=== PATIENT | male | born 1955 | race Caucasian/White ===

== ENCOUNTER 2019-08-06 22:38 | Observation (INO) ==
[2019-08-06] MEDS ORDERED: SODIUM CHLORIDE 0.9% 1,000 ML IV STA (22:55)
[2019-08-06] MEDS ORDERED: MORPHINE 4 MG/1 ML VIAL IV ONE (22:55)
[2019-08-06] MEDS ORDERED: ONDANSETRON 4 MG/2 ML VIAL IV ONE (22:55)
[2019-08-06 23:40] LABS: Basophils % 0.1 % (0.0-0.8); Hematocrit 44.3 VOL% (42.0-52.0); Immature Granulocytes % 0.4 %; Immature Granulocytes Absolute 0.06 #; Lymphocytes # 1.7 10*3/uL (1.4-4.0); Lymphocytes % 10.1 % (21.2-54.2); Mean Corpuscular HGB Conc 33.9 GM/DL (32-36); Mean Corpuscular Volume 89.7 FL (87-102); Mean Platelet Volume 10.1 FL (9.6-12.0); Monocytes % 8.5 % (1.7-12.7); Neutrophils % 80.9 % (38.7-73.9); Platelet Count 243 T/CUMM (130-400); Red Blood Count 4.94 MC/CUMM (3.8-5.5); Red Cell Distribution Width 13.2 % (9.3-17.3); White Blood Count 16.8 T/CUMM (4-12)
[2019-08-06 23:44] LABS: Amorphous Crystals,Urine Occasional /HPF (Few); Apearance,Urine CLEAR (Clear); Bilirubin,Urine Negative (Negative); Blood, Urine Negative (Negative); Glucose,Urine (UA) Negative (Negative); Ketones,Urine Negative (Negative); Mucus,Urine Occasional /LPF (Occasional); Nitrite,Urine Negative (Negative); Protein,Urine Negative; RBC,Urine <1 /HPF (0-4); Squamous Epithelial Cell,Urine Occasional /HPF (0-10); Urine Color Yellow (Yellow); Urine Specific Gravity 1.026 (1.001-1.035); Urine Urobilinogen < 2.0 EU/DL (0.2-1.0)
[2019-08-06 23:48] LABS: INR 1.1; PT Patient Result 11.9 SECS (9.8-11.9)
[2019-08-06] MEDS ORDERED: PIPERACILLIN/TAZOBACTAM 3,375 MG in SODIUM CHLORIDE 0.9% 100 ML IV STA (23:54)
[2019-08-07 00:05] LABS: Bilirubin,Total 1.2 MG/DL (0.2-1.0); Calcium 9.3 MG/DL (8.5-10.1); Osmolality,Calculated 266.7 MOS/KG (273-304)
[2019-08-07] MEDS ORDERED: ACETAMINOPHEN 325 MG TABLET PO PRN (00:33)
[2019-08-07] MEDS ORDERED: PROMETHAZINE 25 MG/1 ML VIAL IM PRN (00:33)
[2019-08-07] MEDS ORDERED: oxyCODONE/ACETAMINOPHEN 5-325 MG TABLET PO PRN (00:33)
[2019-08-07] MEDS ORDERED: ONDANSETRON 4 MG/2 ML VIAL IV PRN ×2 (00:33→08:40)
[2019-08-07] MEDS ORDERED: HYDROmorphone 2 MG/1 ML VIAL IV PRN ×2 (00:33→08:40)
[2019-08-07] MEDS: LACTATED RINGERS 1,000 ML IV SCH ×2 (02:05→09:45)
[2019-08-07 06:33] LABS: Basophils % 0.2 % (0.0-0.8); Eosinophils % 0.1 % (0.00-10.9); Hematocrit 39.9 VOL% (42.0-52.0); Hemoglobin 13.5 GM/DL (14.0-18.0); Immature Granulocytes % 0.6 %; Immature Granulocytes Absolute 0.08 #; Lymphocytes # 1.9 10*3/uL (1.4-4.0); Lymphocytes % 13.4 % (21.2-54.2); Mean Corpuscular HGB Conc 33.8 GM/DL (32-36); Mean Corpuscular Volume 90.1 FL (87-102); Mean Platelet Volume 9.7 FL (9.6-12.0); Monocytes % 10.1 % (1.7-12.7); Neutrophils % 75.6 % (38.7-73.9); Platelet Count 187 T/CUMM (130-400); Red Blood Count 4.43 MC/CUMM (3.8-5.5); Red Cell Distribution Width 13.3 % (9.3-17.3); White Blood Count 13.9 T/CUMM (4-12)
[2019-08-07] MEDS ORDERED: LIDOCAINE 1%/EPI INJ 20 ML VIAL ONE (06:46)
[2019-08-07] MEDS ORDERED: BUPIVACAINE MPF 0.25% 30 ML VIAL ONE (06:46)
[2019-08-07] MEDS ORDERED: TISSUE ADHESIVE 1 EACH APPLICATOR TOP ONE (06:46)
[2019-08-07 06:59] LABS: Albumin 3.3 G/DL (3.4-5.0); Bilirubin,Total 1.5 MG/DL (0.2-1.0); Calcium 8.4 MG/DL (8.5-10.1); Osmolality,Calculated 268.4 MOS/KG (273-304); Total Protein 6.7 G/DL (6.4-8.3)
[2019-08-07] MEDS ORDERED: ceFAZolin 1,000 MG VIAL ONE (08:03)
[2019-08-07] MEDS ORDERED: diphenhydrAMINE 50 MG/1 ML VIAL IV PRN (08:40)
[2019-08-07] MEDS ORDERED: MEPERIDINE 25 MG/1 ML VIAL IV PRN (08:40)
[2019-08-07] MEDS ORDERED: PROMETHAZINE INJ 25 MG in SODIUM CHLORIDE 0.9% 50 ML IV PRN (08:40)
[2019-08-07] MEDS ORDERED: fentaNYL 100 MCG/2 ML VIAL ONE (08:44)
[2019-08-07] MEDS ORDERED: ePHEDrine 50 MG/ML VIAL ONE (08:44)
[2019-08-07] MEDS ORDERED: SEVOFLURANE 1 UNIT/15 MINUTE INH ONE (08:45)
[2019-08-07] MEDS ORDERED: propofoL 200 MG/20 ML VIAL IV ONE (08:45)
[2019-08-07] MEDS ORDERED: LIDOCAINE 2% 5 ML VIAL ONE (08:45)
[2019-08-07] MEDS ORDERED: ONDANSETRON 4 MG/2 ML VIAL ONE (08:45)
[2019-08-07] MEDS ORDERED: MIDAZOLAM 2 MG/2 ML VIAL ONE (08:45)
[2019-08-07] MEDS ORDERED: NEOSTIGMINE 10 MG/10 ML VIAL ONE (08:46)
[2019-08-07] MEDS ORDERED: ROCURONIUM 100 MG/10 ML VIAL IV ONE (08:46)
[2019-08-07] MEDS ORDERED: ACETAMINOPHEN 1,000 MG/100 ML VIAL IV ONE (08:46)
[2019-08-07] MEDS ORDERED: SODIUM CHLORIDE 0.9% 2,000 ML IV ONE (08:46)
[2019-08-07] MEDS ORDERED: GLYCOPYRROLATE 0.4 MG/2 ML VIAL ONE (08:46)
[2019-08-07] MEDS ORDERED: PHENYLEPHRINE 1 MG/10 ML SYRINGE IV ONE (08:46)
[2019-08-07] MEDS ORDERED: KETOROLAC 30 MG/1 ML VIAL ONE (08:46)
[2019-08-07] MEDS ORDERED: RACEPINEPHRINE 0.5 ML NEB RESP TX ONE ×2 (08:55→08:56)
[2019-08-07] MEDS ORDERED: PIPERACILLIN/TAZOBACTAM 3,375 MG in SODIUM CHLORIDE 0.9% 100 ML IV SCH (09:00)
[2019-08-07] MEDS ORDERED: PANTOPRAZOLE 40 MG TABLET PO SCH (09:00)
[2019-08-07 13:51] VITALS: BP 105/54
[2019-08-07 14:00] LABS: Basophils % 0.3 % (0.0-0.8); Eosinophils % 0.1 % (0.00-10.9); Immature Granulocytes % 0.4 %; Immature Granulocytes Absolute 0.05 #; Lymphocytes # 1.7 10*3/uL (1.4-4.0); Lymphocytes % 14.2 % (21.2-54.2); Mean Corpuscular HGB Conc 32.5 GM/DL (32-36); Mean Corpuscular Volume 94.1 FL (87-102); Monocytes % 5.7 % (1.7-12.7); Neutrophils % 79.3 % (38.7-73.9); Platelet Count 196 T/CUMM (130-400); Red Blood Count 4.25 MC/CUMM (3.8-5.5); Red Cell Distribution Width 13.6 % (9.3-17.3); White Blood Count 11.9 T/CUMM (4-12)
== END 2019-08-07 14:25 | disposition home or self-care (01) ==
LOC: N.ED 22:38 → N.EDINP 22:38 → N.3E 08-07 01:39
PROVIDERS: ADMIT Student in an Organized Health Care Education/Training Program; ATTEND Student in an Organized Health Care Education/Training Program

== ENCOUNTER 2022-03-09 18:25 | Inpatient (IN) ==
[2022-03-09] MEDS ORDERED: ASPIRIN 325 MG TABLET PO STA (18:47)
[2022-03-09] MEDS ORDERED: DILTIAZEM 100 MG VIAL.ADD IV ONE (18:48)
[2022-03-09] MEDS ORDERED: DILTIAZEM 25 MG/5 ML VIAL IV ONE (18:49)
[2022-03-09] MEDS ORDERED: DILTIAZEM 25 MG/5 ML VIAL IV STA (18:51)
[2022-03-09 18:59] LABS: Basophils % 0.4 % (0.0-0.8); Eosinophils # 0.1 10*3/uL (0.0-0.87); Eosinophils % 1.3 % (0.00-10.9); Hematocrit 40.4 VOL% (42.0-52.0); Hemoglobin 13.4 GM/DL (14.0-18.0); Immature Granulocytes % 0.4 %; Immature Granulocytes Absolute 0.03 #; Lymphocytes # 1.7 10*3/uL (1.4-4.0); Lymphocytes % 22.1 % (21.2-54.2); Mean Corpuscular HGB Conc 33.2 GM/DL (32-36); Mean Corpuscular Volume 88.8 FL (87-102); Mean Platelet Volume 9.6 FL (9.6-12.0); Monocytes # 0.6 10*3/uL (0.11-0.8); Monocytes % 7.8 % (1.7-12.7); Platelet Count 287 T/CUMM (130-400); Red Blood Count 4.55 MC/CUMM (3.8-5.5); Red Cell Distribution Width 12.1 % (9.3-17.3); White Blood Count 7.5 T/CUMM (4-12)
[2022-03-09] MEDS: DILTIAZEM INJ 100 MG in SODIUM CHLORIDE 0.9% 100 ML IV SCH (18:59)
[2022-03-09 19:05] LABS: PT Patient Result 11.2 SECS (10.1-12.1)
[2022-03-09 19:17] LABS: Alanine Aminotransferase 34 U/L (16-61); Albumin 3.6 G/DL (3.4-5.0); Alkaline Phosphatase 122 U/L (45-117); Aspartate Amino Transferase 17 U/L (0-37); Blood Urea Nitrogen 24 MG/DL (7-18); Calcium 9.3 MG/DL (8.5-10.1); Carbon Dioxide 24 MMOL/L (21-32); Chloride 108 MMOL/L (98-107); Glucose 161 MG/DL (74-106); Osmolality,Calculated 283.5 MOS/KG (273-304); Potassium 3.9 MMOL/L (3.5-5.1); Sodium 139 MMOL/L (136-145); Thyroid Stimulating Hormone < 0.005 uIU/ml (0.358-3.74)
[2022-03-09] MEDS ORDERED: ENOXAPARIN 100 MG/ML SYRINGE SUBCUT STA (19:46)
[2022-03-09] MEDS ORDERED: ZALEPLON 5 MG CAPSULE PO PRN (20:17)
[2022-03-09] MEDS ORDERED: ONDANSETRON 4 MG/2 ML VIAL IV PRN (20:17)
[2022-03-09] MEDS ORDERED: ACETAMINOPHEN 325 MG TABLET PO PRN (20:17)
[2022-03-09] MEDS: METOPROLOL TARTRATE 25 MG TABLET PO SCH (21:52)
[2022-03-10] MEDS: guaiFENesin/CODEINE 5 ML LIQUID PO PRN ×3 (00:31→13:45)
[2022-03-10 05:10] LABS: Basophils % 0.3 % (0.0-0.8); Eosinophils # 0.1 10*3/uL (0.0-0.87); Eosinophils % 1.5 % (0.00-10.9); Hematocrit 35.8 VOL% (42.0-52.0); Hemoglobin 11.8 GM/DL (14.0-18.0); Immature Granulocytes % 0.1 %; Immature Granulocytes Absolute 0.01 #; Lymphocytes # 2.6 10*3/uL (1.4-4.0); Lymphocytes % 35.8 % (21.2-54.2); Mean Corpuscular Volume 89.1 FL (87-102); Mean Platelet Volume 9.4 FL (9.6-12.0); Monocytes # 0.8 10*3/uL (0.11-0.8); Monocytes % 11.4 % (1.7-12.7); Neutrophils % 50.9 % (38.7-73.9); Platelet Count 243 T/CUMM (130-400); Red Blood Count 4.02 MC/CUMM (3.8-5.5); Red Cell Distribution Width 12.3 % (9.3-17.3); White Blood Count 7.2 T/CUMM (4-12)
[2022-03-10 05:36] LABS: Calcium 8.8 MG/DL (8.5-10.1); Osmolality,Calculated 283.5 MOS/KG (273-304); Potassium 3.8 MMOL/L (3.5-5.1)
[2022-03-10 06:08] LABS: Free T4 (Free Thyroxine) 1.92 NG/DL (0.76-1.46)
[2022-03-10] MEDS: DILTIAZEM INJ 100 MG in SODIUM CHLORIDE 0.9% 100 ML IV SCH (06:11)
[2022-03-10 06:25] LABS: Hyaline Casts,Urine 29 /LPF (0-3); Mucus,Urine Occasional /LPF (Occasional)
[2022-03-10 06:26] LABS: Bilirubin,Urine Negative (Negative); Blood, Urine Negative (Negative); Glucose,Urine (UA) Negative (Negative); Ketones,Urine Negative (Negative); Nitrite,Urine Negative (Negative); Protein,Urine Negative (Negative); Urine Appearance Clear (Clear); Urine Color Yellow (Yellow); Urine Specific Gravity > 1.030 (1.001-1.035); Urine Urobilinogen 0.2 eU/dL (<2.0); Urine pH 5.5 (4.5-8.0)
[2022-03-10 07:21] LABS: Barbiturates Screen,Urine Negative (Negative); Benzodiazepines Screen,Urine Negative (Negative); Cannabinoid Screen,Urine Negative (Negative); Opiate Screen,Urine Positive (Negative); Phencyclidine Screen,Urine Negative (Negative)
[2022-03-10] MEDS: APIXABAN 5 MG TABLET PO SCH ×2 (09:48→20:41)
[2022-03-10] MEDS: METOPROLOL TARTRATE 25 MG TABLET PO SCH (09:48)
[2022-03-10] MEDS: PROPRANOLOL 20 MG TABLET PO SCH ×3 (10:13→20:41)
[2022-03-10] MEDS ORDERED: POTASSIUM CHLORIDE 20 MEQ TABLET PO ONE (11:04)
[2022-03-10] MEDS ORDERED: MAGNESIUM SULF RIDER 2 GM/50 ML PREMIX IV ONE (11:04)
[2022-03-10] MEDS: ASCORBIC ACID 500 MG TABLET PO SCH ×2 (12:05→20:41)
[2022-03-10] MEDS: SODIUM CHLORIDE 0.45% 1,000 ML IV SCH (12:10)
[2022-03-10] MEDS ORDERED: DIGOXIN 0.5 MG/2 ML AMP IV ONE (13:10)
[2022-03-11] MEDS: SODIUM CHLORIDE 0.45% 1,000 ML IV SCH ×2 (00:22→14:45)
[2022-03-11 05:27] LABS: Basophils % 0.5 % (0.0-0.8); Eosinophils # 0.2 10*3/uL (0.0-0.87); Eosinophils % 2.8 % (0.00-10.9); Hematocrit 36.6 VOL% (42.0-52.0); Immature Granulocytes % 0.2 %; Immature Granulocytes Absolute 0.01 #; Lymphocytes % 33.6 % (21.2-54.2); Mean Corpuscular HGB Conc 32.8 GM/DL (32-36); Mean Corpuscular Volume 89.1 FL (87-102); Mean Platelet Volume 9.8 FL (9.6-12.0); Monocytes # 0.6 10*3/uL (0.11-0.8); Monocytes % 10.6 % (1.7-12.7); Neutrophils % 52.3 % (38.7-73.9); Platelet Count 244 T/CUMM (130-400); Red Blood Count 4.11 MC/CUMM (3.8-5.5); Red Cell Distribution Width 12.4 % (9.3-17.3); White Blood Count 6.1 T/CUMM (4-12)
[2022-03-11 06:21] LABS: Calcium 9.1 MG/DL (8.5-10.1); Osmolality,Calculated 286.3 MOS/KG (273-304); Potassium 4.2 MMOL/L (3.5-5.1)
[2022-03-11] MEDS: PROPRANOLOL 40 MG TABLET PO SCH ×3 (09:28→22:22)
[2022-03-11] MEDS: ASCORBIC ACID 500 MG TABLET PO SCH ×2 (09:28→22:23)
[2022-03-11] MEDS: APIXABAN 5 MG TABLET PO SCH ×2 (09:29→22:22)
[2022-03-11] MEDS: methIMAzole 5 MG TABLET PO SCH (09:29)
[2022-03-11] MEDS ORDERED: DIGOXIN 0.125 MG TABLET PO SCH (13:00)
[2022-03-12] MEDS: SODIUM CHLORIDE 0.45% 1,000 ML IV SCH (04:08)
[2022-03-12 05:48] LABS: Basophils % 0.5 % (0.0-0.8); Eosinophils # 0.1 10*3/uL (0.0-0.87); Eosinophils % 2.3 % (0.00-10.9); Hematocrit 36.5 VOL% (42.0-52.0); Hemoglobin 12.3 GM/DL (14.0-18.0); Immature Granulocytes % 0.2 %; Immature Granulocytes Absolute 0.01 #; Lymphocytes # 2.1 10*3/uL (1.4-4.0); Lymphocytes % 33.3 % (21.2-54.2); Mean Corpuscular HGB Conc 33.7 GM/DL (32-36); Mean Corpuscular Volume 88.2 FL (87-102); Mean Platelet Volume 9.4 FL (9.6-12.0); Monocytes # 0.6 10*3/uL (0.11-0.8); Monocytes % 9.1 % (1.7-12.7); Neutrophils % 54.6 % (38.7-73.9); Platelet Count 243 T/CUMM (130-400); Red Blood Count 4.14 MC/CUMM (3.8-5.5); Red Cell Distribution Width 12.3 % (9.3-17.3); White Blood Count 6.2 T/CUMM (4-12)
[2022-03-12 06:06] LABS: Calcium 8.9 MG/DL (8.5-10.1); Osmolality,Calculated 281.5 MOS/KG (273-304); Potassium 3.9 MMOL/L (3.5-5.1)
[2022-03-12] MEDS ORDERED: MAGNESIUM SULF RIDER 2 GM/50 ML PREMIX IV ONE (07:57)
[2022-03-12] MEDS: ASCORBIC ACID 500 MG TABLET PO SCH (08:59)
[2022-03-12] MEDS: PROPRANOLOL 40 MG TABLET PO SCH (08:59)
[2022-03-12] MEDS: APIXABAN 5 MG TABLET PO SCH (09:00)
[2022-03-12] MEDS: methIMAzole 5 MG TABLET PO SCH (09:00)
[2022-03-12] MEDS ORDERED: POTASSIUM CHLORIDE 20 MEQ TABLET PO ONE (09:35)
[2022-03-12 12:41] VITALS: BP 123/76
== END 2022-03-12 13:00 | disposition home or self-care (01) | DRG 309 ==
LOC: N.ED 18:25 → N.EDINP 21:57 → N.TELEN 03-10 11:06
PROVIDERS: ADMIT Internal Medicine; ATTEND Internal Medicine